=== PATIENT | female | born 1990 | race African-American/Black ===

== ENCOUNTER 2021-03-27 16:59 | Emergency (ER) | payer OTHER ==
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
[2021-03-27] MEDS ORDERED: traMADol 50 MG Tab PO ONE ×2 (18:09→20:18)
== END 2021-03-27 20:25 | disposition home or self-care (01) ==
LOC: FB.ED 16:59
DX: S43.101A Unspecified dislocation of right acromioclavicular joint, initial encounter (principal); S80.02XA Contusion of left knee, initial encounter; S80.01XA Contusion of right knee, initial encounter; Z88.8 Allergy status to other drugs, medicaments and biological substances; V19.9XXA Pedal cyclist (driver) (passenger) injured in unspecified traffic accident, initial encounter; Y93.55 Activity, bike riding
CPT/HCPCS: 73030; 73562; 99284; A9270

== ENCOUNTER 2021-04-16 12:47 | Emergency (ER) | payer SELFPAY ==
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
== END 2021-04-16 13:35 | disposition home or self-care (01) ==
LOC: FB.ED 12:47
DX: M25.511 Pain in right shoulder (principal); Z88.8 Allergy status to other drugs, medicaments and biological substances
CPT/HCPCS: 99283

== ENCOUNTER 2022-01-09 19:59 | Emergency (ER) | payer SELFPAY ==
[2022-01-09] MEDS ORDERED: traMADol 50 MG Tab PO ONE ×2 (20:00→20:58)
[2022-01-09] MEDS: Acetaminophen 500 MG Tab PO ONE ×2 (20:50→21:08)
== END 2022-01-09 21:25 | disposition home or self-care (01) ==
LOC: FB.ED 19:59
DX: S80.12XA Contusion of left lower leg, initial encounter (principal); Z88.6 Allergy status to analgesic agent; W10.8XXA Fall (on) (from) other stairs and steps, initial encounter
CPT/HCPCS: 73562; 99283; A9270